=== PATIENT | male | born 1955 | race Caucasian/White ===

== ENCOUNTER 2020-09-08 21:20 | Emergency (ER) | payer OTHER, MEDICAID ==
[~2020-09-08] VITALS: Ht 182.9 cm; Wt 136.1 kg
[2020-09-08 21:41] LABS: ABSOLUTE BASOPHILS 0.1 thou/uL (0.0-0.2); ABSOLUTE EOSINOPHILS 0.4 thou/uL (0.0-0.7); ABSOLUTE LYMPHOCYTES 1.3 thou/uL (0.8-5.3); ABSOLUTE NEUTROPHILS 10.3 thou/uL (1.6-8.1); BASOPHILS 0.9 %; EOSINOPHILS 2.9 %; HEMATOCRIT 47.2 % (42.0-52.0); HEMOGLOBIN 15.7 gm/dL (14.0-18.0); LYMPHOCYTES 9.8 %; MCH 28.4 pg (26.0-34.0); MCHC 33.2 g/dL (28.0-37.0); MCV 85.5 fL (80.0-100.0); MONOCYTES 7.5 %; MPV 7.9 fl. (7.2-11.1); NUCLEATED RBCS 0 /100WBC; PLATELET COUNT* 236 thou/uL (150-400); POLYS 78.9 %; RBC 5.53 mil/uL (4.50-6.00)
[2020-09-08 21:48] LABS: CALCIUM 8.9 mg/dL (8.5-10.1); CREATININE 1.4 mg/dL (0.6-1.3); POTASSIUM 3.6 mmol/L (3.5-5.1)
[2020-09-08 21:51] LABS: APTT 24.5 Seconds (25.0-31.3); PROTIME 10.5 Seconds (9.20-11.50)
[2020-09-08 21:59] LABS: ALBUMIN 3.5 g/dL (3.4-5.0); TOTAL PROTEIN 7.5 g/dL (6.4-8.2)
[2020-09-09 01:11] VITALS: BP 136/74
--- NOTE | 2020-09-09 11:35 | EKG ---
[place] [address] ELECTROCARDIOGRAM REPORT Name: KATIE ROTH Room: [facility]#: [id number] Admission: 09/08/20 Attend Phys: Discharge: Date of : 55 Date of Service: 09/08/202119 Report #: [id number] THIS REPORT FOR: //name// [facility] ED Test Date: 2020-09-08 Test Time: 21:20:01 Pat Name: KATIE ROTH Department: Room: Gender: Studio Technician: : 1955 Requested By: Marilee Lemos Order Number: [id number] MD: Maximino Dinero Measurements Intervals [place] Rate: 100 P: 0 TX: 133 QRS: -81 QRSD: 179 T: 90 QT: 464 QTc: 599 Interpretive Statements Ventricular-paced rhythm No further analysis attempted due to paced rhythm Baseline wander in lead(s) V3,V4,V5,V6 No previous ECG available for comparison Electronically Signed On 09-09-2020 11:35:25 CDT by Maximino Dinero [email or web address] <ELECTRONICALLY SIGNED> By: Maximino Dinero MD, FAC 09/09/20 1135 19 19 Maximino Dinero MD, [facility] /EPI
== END 2020-09-09 01:11 | disposition short-term general hospital (02) ==
LOC: EDBD 21:20 → M.ERS 21:20
PROVIDERS: Personal Emergency Response Attendant
DX: I25.10 Atherosclerotic heart disease of native coronary artery without angina pectoris (principal); Z20.822 Contact with and (suspected) exposure to COVID-19; R74.8 Abnormal levels of other serum enzymes; Z88.0 Allergy status to penicillin